=== PATIENT | male | born 1965 | race Caucasian/White ===

== ENCOUNTER 2018-09-01 10:24 | Emergency (ER) | payer SELFPAY ==
[~2018-09-01 10:24] MED LIST: BACTRIM DS 8001 TA1 PO; HYDROCODONE BIT1 T11 PO; KEFLEX500 MG PO; MOTRIN800 MG PO; PREDNISONE20 MG PO
[2018-09-01 10:47] VITALS: BP 137/80
== END 2018-09-01 13:48 | disposition home or self-care (01) ==
LOC: ED 10:24
DX: S01.01XA Laceration without foreign body of scalp, initial encounter (principal); S01.412A Laceration without foreign body of left cheek and temporomandibular area, initial encounter; W22.8XXA Striking against or struck by other objects, initial encounter; Y93.89 Activity, other specified; Y92.89 Other specified places as the place of occurrence of the external cause; Y99.8 Other external cause status